=== PATIENT | female | born 1995 | race Caucasian/White ===

== ENCOUNTER 2016-06-04 12:39 | Emergency (ER) | payer BC ==
[2016-06-04 12:49] VITALS: BP 114/67; PULSE 60; RESP 16; TEMP 97
[2016-06-04] MEDS ORDERED: PROPARACAINE 0.5% OPHTH DROPS 15 ML BTL LEFT EYE STA (13:11)
--- NOTE | 2016-06-04 13:13 | ED ---
General Adult HPI - General Chief complaint: Eye Problems Stated complaint: Eye Pain Time Seen by Provider: 06/04/16 13:01 Source: patient, RN notes reviewed Mode of arrival: ambulatory Limitations: no limitations - History of Present Illness Initial comments: This is a 20-year-old female presents with left eye redness and crusting 5 days. Patient states she has been diagnosed with pink eye and put on Vigamox eyedrops. Patient states her symptoms have been getting worse. Patient reports crusting in the morning. Patient reports an irritation when she blinks. Patient denies any blurred vision but states the drainage sometimes gives the illusion of blurry vision. Patient denies any pain or headache. Patient denies any foreign body in the eye. Patient denies any chance of being .Patient denies any recent fever, chills, shortness breath, chest pain, abdominal pain, nausea/vomiting/diarrhea, back pain, numbness, tingling, hematuria, headache, or visual changes, or any other complaints. - Related Data Previous Rx's Medication Instructions Recorded Tobramycin 0.3% Ophth Soln [Tobrex 1 - 2 drop LEFT EYE Q4H 5 Days 06/04/16 0.3% Ophth Soln] Allergies Allergy/AdvReac Type Severity Reaction Status Date / Time No Known Allergies Allergy Verified 06/04/16 12:45 Review of Systems ROS Statement: Those systems with pertinent positive or pertinent negative responses have been documented in the HPI. ROS Other: All systems not noted in ROS Statement are negative. Past Medical History Past Medical History: No Reported History History of Any Multi-Drug Resistant Organisms: None Reported Past Surgical History: Tonsillectomy Past Psychological History: No Psychological Hx Reported Smoking Status: Never smoker Past Alcohol Use History: Occasional Past Drug Use History: Marijuana General Exam - General Exam Comments Initial Comments: General: The patient is awake and alert, in no distress, and does not appear acutely ill. Eye: Left Conjunctiva is erythematous with mild amount of drainage. Right conjunctiva within normal limits. Pupils are equal, round and reactive to light , extra-ocular movements are intact. No pain with extraocular movements. No nystagmus. No signs of icterus. Tonometry shows 17 mmHg the left eye. Ears: TMs pink and pearly with intact cone of light bilaterally. Normal external ear canals Nose: Nasal turbinates pink and moist Mouth and throat: There are moist mucous membranes and no oral lesions. Neck: The neck is supple, there is no tenderness or JVD. Cardiovascular: There is a regular rate and rhythm. No murmur, rub or gallop is appreciated. Respiratory: Lungs are clear to auscultation, respirations are non-labored, breath sounds are equal. No wheezes, stridor, rales, or rhonchi. Musculoskeletal: Normal ROM, no tenderness. Strength 5/5. Sensation intact. Radial pulses equal bilaterally 2+. Neurological: A&O x 3. CN II-XII intact, There are no obvious motor or sensory deficits. Coordination appears grossly intact. Speech is normal. Skin: Skin is warm and dry and no rashes or lesions are noted. Psychiatric: Cooperative, appropriate mood & affect, normal judgment. Limitations: no limitations Course Vital Signs 06/04/16 12:45 Temperature 97 F L Pulse Rate 60 Respiratory 16 Rate Blood Pressure 114/67 O2 Sat by Pulse 98 Oximetry Procedures - Procedures Initial comment: Proparacaine was used to anesthetize the eye and fluorescein stain was applied. Left eye was viewed under the Corey lamp and no evidence for corneal abrasion , punctate lesions or dendritic lesions were seen. No foreign body was seen with eyelid eversion. No hyphema, subconjunctival hemorrhage, hypopyon. Patient tolerated procedure well. Medical Decision Making - Medical Decision Making This is a 20-year-old female presents with left eye drainage and redness that she has been on antibiotics for. On physical exam left Conjunctiva is erythematous with mild amount of drainage. Right conjunctiva within normal limits. Pupils are equal, round and reactive to light, extra-ocular movements are intact. No pain with extraocular movements. No nystagmus. No signs of icterus. Proparacaine was used to anesthetize the eye and fluorescein stain was applied. Left eye was viewed under the Corey lamp no corneal abrasion, punctate lesions or dendritic lesions were seen. No foreign body was seen with eyelid eversion. No hyphema, subconjunctival hemorrhage, hypopyon. Patient tolerated procedure well. I discussed that patient will be put on tobramycin and that she should stop her Vigamox. I discussed with patient if she develops any worsening symptoms or if her symptoms have not started to improve by Monday that she follow-up with the convenience store manager. I discussed return parameters. Discussed that patient should follow up with PCP in one to 2 days or return to the [facility] for any worsening symptoms or for any further concerns. Patient and her mother were receptive to this plan and patient will be discharged home. I discussed this case with attending physician Dr. Arteaga who agrees the plan as stated above. Disposition Clinical Impression: Conjunctivitis Disposition: HOME SELF-CARE Condition: Good Instructions: Conjunctivitis (ED) Additional Instructions: Please stop Vigamox and start tobramycin eyedrops. Please do not use tobramycin drops over 5 days. If her symptoms do not start to improve by Monday or if symptoms are worsening or if he notices any change in vision please follow-up with ophthalmology or return to the [facility] for any worsening symptoms or for any further concerns. Otherwise please follow-up with your primary care physician in 1-2 days. Prescriptions: Tobramycin 0.3% Ophth Soln [Tobrex 0.3% Ophth Soln] 1 - 2 drop LEFT EYE Q4H 5 Days Referrals: Eugene Ray MD [Primary Care Provider] - 1-2 days Avni Lopez MD [STAFF PHYSICIAN] - 1-2 days Time of Disposition: 14:06
== END 2016-06-04 14:12 | disposition home or self-care (01) ==
LOC: EC 12:39
DX: H10.9 Unspecified conjunctivitis (principal)
CPT/HCPCS: 99283